=== PATIENT | male | born 1960 | race Caucasian/White ===

== ENCOUNTER 2018-01-28 18:21 | Inpatient (IN) | payer MEDICARE, MEDICAID ==
[~2018-01-28] VITALS: Ht 177.8 cm; Wt 107.8 kg
[~2018-01-28 18:21] MED LIST: ASPI81 PO; BECL8.7A6 IH; DOCU250C91 PO; DULO60CA44 PO; GABA-531 PO; HYPR15DR23 OU; LUBI24CA2 PO; OMEP20 PO; PANT40TA25 PO; QUET100T PO; SIMV-259 PO; TRAZ-147 PO; VITAD1000 PO
[2018-01-28] MEDS ORDERED: PENT400 PO (19:03)
[2018-01-28] MEDS ORDERED: DIAZ10 PO (19:03)
[2018-01-28] MEDS ORDERED: CYCL5.5D OU (19:03)
[2018-01-28] MEDS ORDERED: TEST5GEL TD (19:03)
[2018-01-28] MEDS ORDERED: FLUT16H NASAL (19:03)
[2018-01-28] MEDS ORDERED: TEMA15CA PO (19:03)
[2018-01-28 19:15] LABS: BASOPHILS % (AUTO) 0.8 % (0.0-2.0); EOSINOPHILS % (AUTO) 2.7 % (1.0-6.0); HEMATOCRIT 40.5 % (41-53); HEMOGLOBIN 13.6 g/dL (13.5-17.5); LYMPHOCYTES % (AUTO) 27.5 % (22.0-44.0); MEAN CORPUSCULAR HEMOGLOBIN 28.9 pg (26.0-34.0); MEAN CORPUSCULAR HGB CONC 33.6 G/dL (31.0-37.0); MEAN CORPUSCULAR VOLUME 86 fL (80-100); MONOCYTES # (AUTO) 0.8 K/uL (0.1-1.0); MONOCYTES % (AUTO) 10.7 % (2.0-9.0); NEUTROPHILS # (AUTO) 4.2 K/uL (1.8-7.7); NEUTROPHILS % (AUTO) 58.3 % (40.0-70.0); PLATELET COUNT (AUTO) 235 K/uL (150-450); RED CELL DISTRIBUTION WIDTH 14.9 % (11.5-14.5)
[2018-01-28 19:23] LABS: ANION GAP 4 mmol/L (8-16); CALCIUM, TOTAL 8.3 mg/dL (8.8-10.5); CARBON DIOXIDE 30 mmol/L (22-29); CHLORIDE 101 mmol/L (98-107); CREATININE 0.92 mg/dL (0.60-1.30); GLOMERULAR FILTR. RATE CALC > 60 mL/min (>60); GLUCOSE,RANDOM 75 mg/dL (70-110); POTASSIUM 4.2 mmol/L (3.5-5.1); SODIUM SERUM 135 mmol/L (136-145); UREA NITROGEN, BLOOD 11 mg/dL (7-18)
[2018-01-28 19:30] LABS: ALANINE AMINOTRANSFERASE 34 U/L (12-78); ALBUMIN 3.6 g/dL (3.4-5.0); ALKALINE PHOSPHATASE 100 U/L (46-116); ASPARTATE AMINOTRANSFERASE 19 U/L (15-37); BILIRUBIN,TOTAL 0.6 mg/dL (0.1-1.0); TOTAL PROTEIN, SERUM 7.3 g/dL (6.4-8.2)
[2018-01-28 19:45] LABS: AMPHET/METH SCREEN,URINE NEGATIVE (NEGATIVE); BARBITURATE SCREEN, URINE NEGATIVE (NEGATIVE); BENZODIAZEPINES SCREEN,URINE POSITIVE (NEGATIVE); CANNABINOID SCREEN,URINE NEGATIVE (NEGATIVE); COCAINE SCREEN,URINE NEGATIVE (NEGATIVE); METHADONE SCREEN, URINE NEGATIVE (NEGATIVE); OPIATE SCREEN,URINE NEGATIVE (NEGATIVE)
[2018-01-28 19:46] LABS: PHENCYCLIDINE SCREEN,URINE NEGATIVE (NEGATIVE)
[2018-01-28] MEDS ORDERED: HALOPERIDOL 5 MG TABLET PO PRN (20:00)
[2018-01-28] MEDS ORDERED: ZOLPIDEM TARTRATE 10 MG TABLET PO PRN (20:00)
[2018-01-28] MEDS ORDERED: SIMV-261 PO (20:04)
[2018-01-28] MEDS ORDERED: PERTUSS(ACELL),DIPH,TET VAC/PF 0.5 ML VIAL IM ONE (20:30)
[2018-01-28] MEDS ORDERED: SODIUM CHLORIDE 0.9% 250 ML IRRIG SOLUTION BOTTLE IRRIG ONE (20:30)
[2018-01-29 00:04] VITALS: BP 120/82
[2018-01-29 00:05] VITALS: BP 124/73
[2018-01-29] MEDS: LORazepam 2 MG TABLET PO PRN ×2 (00:06→12:22)
[2018-01-29 08:22] VITALS: BP 108/60
[2018-01-29] MEDS ORDERED: DICYCLOMINE HCL 10 MG CAPSULE PO PRN (12:45)
[2018-01-29] MEDS ORDERED: TESTOSTERONE 4 MG/24 HR TD SCH (12:45)
[2018-01-29] MEDS: PENTOXIFYLLINE 400 MG DR TABLET PO SCH ×2 (13:00→16:36)
[2018-01-29] MEDS: OXYBUTYNIN CHLORIDE 5 MG TABLET PO SCH ×2 (13:09→16:36)
[2018-01-29] MEDS: OMEGA-3/DHA/EPA/FISH OIL 1,000 MG CAPSULE PO SCH (13:09)
[2018-01-29] MEDS: DULoxetine HCL 60 MG CAPSULE PO SCH (13:09)
[2018-01-29] MEDS: GABAPENTIN 300 MG CAPSULE PO SCH ×2 (13:09→16:36)
[2018-01-29] MEDS: TAMSULOSIN HCL 0.4 MG CAPSULE PO SCH (13:09)
[2018-01-29] MEDS: MONTELUKAST SODIUM 10 MG TABLET PO SCH (15:42)
[2018-01-29] MEDS: CALCIPOTRIENE 0.005% 60 GM CREAM TP SCH (15:42)
[2018-01-29] MEDS: FLUTICASONE PROPIONATE 50 MCG/SPRAY 16 GM NASAL SPRAY NASAL SCH (15:42)
[2018-01-29] MEDS: CycloSPORINE 0.05% 0.4 ML OPHTHALMIC EMULSION OU SCH (15:43)
[2018-01-29 16:14] VITALS: BP 140/73
[2018-01-29] MEDS: LUBIPROSTONE 24 MCG CAPSULE PO SCH (16:35)
[2018-01-29] MEDS: FAMOTIDINE 20 MG TABLET PO SCH (16:35)
[2018-01-29] MEDS ORDERED: NIZATIDINE 150 MG PO SCH (17:00)
[2018-01-29] MEDS: TiZANidine HCL 4 MG TABLET PO SCH (21:49)
[2018-01-29] MEDS: QUEtiapine FUMARATE 200 MG TABLET PO SCH (21:49)
[2018-01-30 02:20] VITALS: BP 112/61
[2018-01-30] MEDS: FAMOTIDINE 20 MG TABLET PO SCH ×2 (08:44→16:24)
[2018-01-30] MEDS: LUBIPROSTONE 24 MCG CAPSULE PO SCH ×2 (08:44→16:25)
[2018-01-30] MEDS: OMEGA-3/DHA/EPA/FISH OIL 1,000 MG CAPSULE PO SCH (08:45)
[2018-01-30] MEDS: DULoxetine HCL 60 MG CAPSULE PO SCH (08:45)
[2018-01-30] MEDS: OXYBUTYNIN CHLORIDE 5 MG TABLET PO SCH ×3 (08:45→16:25)
[2018-01-30] MEDS: TAMSULOSIN HCL 0.4 MG CAPSULE PO SCH (08:45)
[2018-01-30] MEDS: PENTOXIFYLLINE 400 MG DR TABLET PO SCH ×3 (08:45→16:24)
[2018-01-30] MEDS: CycloSPORINE 0.05% 0.4 ML OPHTHALMIC EMULSION OU SCH ×2 (08:45→20:41)
[2018-01-30] MEDS: TiZANidine HCL 4 MG TABLET PO SCH ×2 (08:45→20:40)
[2018-01-30] MEDS: GABAPENTIN 300 MG CAPSULE PO SCH ×3 (08:45→16:24)
[2018-01-30] MEDS: FLUTICASONE PROPIONATE 50 MCG/SPRAY 16 GM NASAL SPRAY NASAL SCH (08:45)
[2018-01-30] MEDS: MONTELUKAST SODIUM 10 MG TABLET PO SCH (08:45)
[2018-01-30 08:46] VITALS: BP 111/68
[2018-01-30] MEDS: CALCIPOTRIENE 0.005% 60 GM CREAM TP SCH (08:47)
[2018-01-30] MEDS ORDERED: MAGNESIUM CITRATE 300 ML ORAL SOLUTION PO PRN (12:30)
[2018-01-30 16:13] VITALS: BP 121/77
[2018-01-30] MEDS: QUEtiapine FUMARATE 200 MG TABLET PO SCH (20:37)
[2018-01-31 00:44] VITALS: BP 112/68
[2018-01-31] MEDS ORDERED: MAGNESIUM CITRATE 300 ML ORAL SOLUTION PO ONE (08:15)
[2018-01-31 08:23] VITALS: BP 126/63
[2018-01-31] MEDS: DULoxetine HCL 60 MG CAPSULE PO SCH (09:07)
[2018-01-31] MEDS: GABAPENTIN 300 MG CAPSULE PO SCH ×3 (09:07→16:12)
[2018-01-31] MEDS: FAMOTIDINE 20 MG TABLET PO SCH ×2 (09:08→16:12)
[2018-01-31] MEDS: OMEGA-3/DHA/EPA/FISH OIL 1,000 MG CAPSULE PO SCH (09:08)
[2018-01-31] MEDS: LUBIPROSTONE 24 MCG CAPSULE PO SCH ×2 (09:08→16:12)
[2018-01-31] MEDS: TiZANidine HCL 4 MG TABLET PO SCH ×2 (09:08→21:02)
[2018-01-31] MEDS: TAMSULOSIN HCL 0.4 MG CAPSULE PO SCH (09:08)
[2018-01-31] MEDS: OXYBUTYNIN CHLORIDE 5 MG TABLET PO SCH ×3 (09:08→16:12)
[2018-01-31] MEDS: PENTOXIFYLLINE 400 MG DR TABLET PO SCH ×3 (09:08→16:12)
[2018-01-31] MEDS: MONTELUKAST SODIUM 10 MG TABLET PO SCH (09:08)
[2018-01-31] MEDS: FLUTICASONE PROPIONATE 50 MCG/SPRAY 16 GM NASAL SPRAY NASAL SCH (09:08)
[2018-01-31] MEDS: CycloSPORINE 0.05% 0.4 ML OPHTHALMIC EMULSION OU SCH ×2 (09:08→21:04)
[2018-01-31] MEDS: TESTOSTERONE 1% 50 MG-5 GM GEL PACKET TD SCH (09:15)
[2018-01-31] MEDS: CALCIPOTRIENE 0.005% 60 GM CREAM TP SCH (09:15)
[2018-01-31] MEDS: HYPROMELLOSE 0.5% 15 ML OPHTHALMIC SOLUTION OU PRN (12:09)
[2018-01-31 16:09] VITALS: BP 116/77
[2018-01-31] MEDS: LORazepam 2 MG TABLET PO PRN (16:22)
[2018-01-31] MEDS: QUEtiapine FUMARATE 200 MG TABLET PO SCH (21:02)
[2018-02-01 00:15] VITALS: BP 110/70
[2018-02-01 08:34] VITALS: BP 115/69
[2018-02-01] MEDS: LUBIPROSTONE 24 MCG CAPSULE PO SCH ×2 (08:37→16:14)
[2018-02-01] MEDS: OMEGA-3/DHA/EPA/FISH OIL 1,000 MG CAPSULE PO SCH (08:37)
[2018-02-01] MEDS: FAMOTIDINE 20 MG TABLET PO SCH ×2 (08:37→16:14)
[2018-02-01] MEDS: PENTOXIFYLLINE 400 MG DR TABLET PO SCH ×3 (08:38→16:14)
[2018-02-01] MEDS: CycloSPORINE 0.05% 0.4 ML OPHTHALMIC EMULSION OU SCH ×2 (08:38→21:00)
[2018-02-01] MEDS: TAMSULOSIN HCL 0.4 MG CAPSULE PO SCH (08:38)
[2018-02-01] MEDS: TiZANidine HCL 4 MG TABLET PO SCH ×2 (08:38→21:02)
[2018-02-01] MEDS: DULoxetine HCL 60 MG CAPSULE PO SCH (08:38)
[2018-02-01] MEDS: GABAPENTIN 300 MG CAPSULE PO SCH ×3 (08:38→16:15)
[2018-02-01] MEDS: OXYBUTYNIN CHLORIDE 5 MG TABLET PO SCH ×3 (08:38→16:14)
[2018-02-01] MEDS: MONTELUKAST SODIUM 10 MG TABLET PO SCH (08:38)
[2018-02-01] MEDS: TESTOSTERONE 1% 50 MG-5 GM GEL PACKET TD SCH (08:39)
[2018-02-01] MEDS: FLUTICASONE PROPIONATE 50 MCG/SPRAY 16 GM NASAL SPRAY NASAL SCH (08:41)
[2018-02-01] MEDS: CALCIPOTRIENE 0.005% 60 GM CREAM TP SCH (08:41)
[2018-02-01] MEDS: HYPROMELLOSE 0.5% 15 ML OPHTHALMIC SOLUTION OU PRN (13:23)
[2018-02-01] MEDS: LORazepam 2 MG TABLET PO PRN (13:23)
[2018-02-01 16:35] VITALS: BP 120/76
[2018-02-01] MEDS: QUEtiapine FUMARATE 200 MG TABLET PO SCH (21:02)
[2018-02-01] MEDS ORDERED: MAG HYDROX/AL HYDROX/SIMETH ES 30 ML SUSPENSION UDCUP PO PRN (21:30)
[2018-02-01] MEDS ORDERED: IBUPROFEN 600 MG TABLET PO PRN (21:30)
[2018-02-01] MEDS ORDERED: PETROLATUM,WHITE 71 GM JELLY TP PRN (21:30)
[2018-02-01] MEDS ORDERED: BENZOCAINE/MENTHOL LOZENGE MM PRN (21:30)
[2018-02-01] MEDS ORDERED: ACETAMINOPHEN 325 MG TABLET PO PRN (21:30)
[2018-02-01] MEDS ORDERED: CloNIDine HCL 0.1 MG TABLET PO PRN (21:30)
[2018-02-01] MEDS ORDERED: ALBUTEROL SULFATE HFA 90 MCG/PUFF 8 GM INHALER IH PRN (21:30)
[2018-02-01] MEDS ORDERED: BACITRACIN 28.4 GM OINTMENT TP PRN (21:30)
[2018-02-02 07:21] VITALS: BP 109/68
[2018-02-02 08:40] VITALS: BP 120/72
[2018-02-02] MEDS: OMEPRAZOLE 20 MG CAPSULE PO SCH (08:56)
[2018-02-02] MEDS: OXYBUTYNIN CHLORIDE 5 MG TABLET PO SCH ×3 (08:57→16:10)
[2018-02-02] MEDS: LUBIPROSTONE 24 MCG CAPSULE PO SCH ×2 (08:57→16:10)
[2018-02-02] MEDS: DULoxetine HCL 60 MG CAPSULE PO SCH (08:57)
[2018-02-02] MEDS: FAMOTIDINE 20 MG TABLET PO SCH ×2 (08:57→16:09)
[2018-02-02] MEDS: OMEGA-3/DHA/EPA/FISH OIL 1,000 MG CAPSULE PO SCH (08:57)
[2018-02-02] MEDS: TiZANidine HCL 4 MG TABLET PO SCH ×2 (08:57→21:45)
[2018-02-02] MEDS: TAMSULOSIN HCL 0.4 MG CAPSULE PO SCH (08:57)
[2018-02-02] MEDS: MONTELUKAST SODIUM 10 MG TABLET PO SCH (08:57)
[2018-02-02] MEDS: PENTOXIFYLLINE 400 MG DR TABLET PO SCH ×3 (08:57→16:10)
[2018-02-02] MEDS: CycloSPORINE 0.05% 0.4 ML OPHTHALMIC EMULSION OU SCH ×2 (08:57→21:45)
[2018-02-02] MEDS: GABAPENTIN 300 MG CAPSULE PO SCH ×3 (08:57→16:09)
[2018-02-02] MEDS: TESTOSTERONE 1% 50 MG-5 GM GEL PACKET TD SCH (08:58)
[2018-02-02] MEDS: FLUTICASONE PROPIONATE 50 MCG/SPRAY 16 GM NASAL SPRAY NASAL SCH (09:00)
[2018-02-02] MEDS: CALCIPOTRIENE 0.005% 60 GM CREAM TP SCH (09:00)
[2018-02-02] MEDS: LORazepam 2 MG TABLET PO PRN ×2 (11:02→16:11)
[2018-02-02] MEDS: HYPROMELLOSE 0.5% 15 ML OPHTHALMIC SOLUTION OU PRN (16:11)
[2018-02-02 16:26] VITALS: BP 113/70
[2018-02-02] MEDS: QUEtiapine FUMARATE 200 MG TABLET PO SCH (21:44)
[2018-02-03 06:31] VITALS: BP 128/78
[2018-02-03 08:00] VITALS: BP 130/87
[2018-02-03] MEDS: GABAPENTIN 300 MG CAPSULE PO SCH ×3 (08:26→16:38)
[2018-02-03] MEDS: TAMSULOSIN HCL 0.4 MG CAPSULE PO SCH (08:27)
[2018-02-03] MEDS: TiZANidine HCL 4 MG TABLET PO SCH ×2 (08:27→21:04)
[2018-02-03] MEDS: FAMOTIDINE 20 MG TABLET PO SCH ×2 (08:27→16:38)
[2018-02-03] MEDS: PENTOXIFYLLINE 400 MG DR TABLET PO SCH ×3 (08:27→16:38)
[2018-02-03] MEDS: OMEPRAZOLE 20 MG CAPSULE PO SCH (08:27)
[2018-02-03] MEDS: FLUTICASONE PROPIONATE 50 MCG/SPRAY 16 GM NASAL SPRAY NASAL SCH (08:27)
[2018-02-03] MEDS: OMEGA-3/DHA/EPA/FISH OIL 1,000 MG CAPSULE PO SCH (08:27)
[2018-02-03] MEDS: CycloSPORINE 0.05% 0.4 ML OPHTHALMIC EMULSION OU SCH ×2 (08:27→20:54)
[2018-02-03] MEDS: DULoxetine HCL 60 MG CAPSULE PO SCH (08:27)
[2018-02-03] MEDS: MONTELUKAST SODIUM 10 MG TABLET PO SCH (08:27)
[2018-02-03] MEDS: OXYBUTYNIN CHLORIDE 5 MG TABLET PO SCH ×3 (08:27→16:38)
[2018-02-03] MEDS: LUBIPROSTONE 24 MCG CAPSULE PO SCH ×2 (08:27→16:38)
[2018-02-03] MEDS: TESTOSTERONE 1% 50 MG-5 GM GEL PACKET TD SCH (08:28)
[2018-02-03] MEDS: CALCIPOTRIENE 0.005% 60 GM CREAM TP SCH (08:30)
[2018-02-03] MEDS: LORazepam 2 MG TABLET PO PRN ×2 (08:41→16:21)
[2018-02-03 16:28] VITALS: BP 110/73
[2018-02-03] MEDS: QUEtiapine FUMARATE 200 MG TABLET PO SCH (21:04)
[2018-02-04 00:05] VITALS: BP 104/61
[2018-02-04 08:28] VITALS: BP 137/88
[2018-02-04] MEDS: FAMOTIDINE 20 MG TABLET PO SCH ×2 (08:29→16:51)
[2018-02-04] MEDS: LUBIPROSTONE 24 MCG CAPSULE PO SCH ×2 (08:29→16:52)
[2018-02-04] MEDS: GABAPENTIN 300 MG CAPSULE PO SCH ×3 (08:29→16:52)
[2018-02-04] MEDS: PENTOXIFYLLINE 400 MG DR TABLET PO SCH ×3 (08:29→16:52)
[2018-02-04] MEDS: MONTELUKAST SODIUM 10 MG TABLET PO SCH (08:29)
[2018-02-04] MEDS: OMEPRAZOLE 20 MG CAPSULE PO SCH (08:29)
[2018-02-04] MEDS: DULoxetine HCL 60 MG CAPSULE PO SCH (08:30)
[2018-02-04] MEDS: TiZANidine HCL 4 MG TABLET PO SCH ×2 (08:30→21:00)
[2018-02-04] MEDS: TAMSULOSIN HCL 0.4 MG CAPSULE PO SCH (08:30)
[2018-02-04] MEDS: OXYBUTYNIN CHLORIDE 5 MG TABLET PO SCH ×3 (08:30→16:52)
[2018-02-04] MEDS: FLUTICASONE PROPIONATE 50 MCG/SPRAY 16 GM NASAL SPRAY NASAL SCH (08:30)
[2018-02-04] MEDS: CycloSPORINE 0.05% 0.4 ML OPHTHALMIC EMULSION OU SCH ×2 (08:30→21:01)
[2018-02-04] MEDS: OMEGA-3/DHA/EPA/FISH OIL 1,000 MG CAPSULE PO SCH (08:30)
[2018-02-04] MEDS: TESTOSTERONE 1% 50 MG-5 GM GEL PACKET TD SCH (08:31)
[2018-02-04] MEDS: CALCIPOTRIENE 0.005% 60 GM CREAM TP SCH (08:35)
[2018-02-04] MEDS: LORazepam 2 MG TABLET PO PRN ×2 (08:36→14:45)
[2018-02-04 16:11] VITALS: BP 132/76
[2018-02-04] MEDS: QUEtiapine FUMARATE 200 MG TABLET PO SCH (21:00)
[2018-02-05 01:19] VITALS: BP 108/70
[2018-02-05 08:14] VITALS: BP 110/65
[2018-02-05] MEDS: MONTELUKAST SODIUM 10 MG TABLET PO SCH (09:01)
[2018-02-05] MEDS: GABAPENTIN 300 MG CAPSULE PO SCH ×3 (09:01→16:34)
[2018-02-05] MEDS: OXYBUTYNIN CHLORIDE 5 MG TABLET PO SCH ×3 (09:01→16:34)
[2018-02-05] MEDS: DULoxetine HCL 60 MG CAPSULE PO SCH (09:01)
[2018-02-05] MEDS: FAMOTIDINE 20 MG TABLET PO SCH ×2 (09:01→16:33)
[2018-02-05] MEDS: TAMSULOSIN HCL 0.4 MG CAPSULE PO SCH (09:01)
[2018-02-05] MEDS: TiZANidine HCL 4 MG TABLET PO SCH ×2 (09:01→21:13)
[2018-02-05] MEDS: OMEPRAZOLE 20 MG CAPSULE PO SCH (09:01)
[2018-02-05] MEDS: TESTOSTERONE 1% 50 MG-5 GM GEL PACKET TD SCH (09:02)
[2018-02-05] MEDS: CycloSPORINE 0.05% 0.4 ML OPHTHALMIC EMULSION OU SCH ×2 (09:03→21:13)
[2018-02-05] MEDS: PENTOXIFYLLINE 400 MG DR TABLET PO SCH ×3 (09:03→16:34)
[2018-02-05] MEDS: POLYETHYLENE GLYCOL 3350 17 GM PACKET PO SCH (09:03)
[2018-02-05] MEDS: LUBIPROSTONE 24 MCG CAPSULE PO SCH ×2 (09:03→16:34)
[2018-02-05] MEDS: OMEGA-3/DHA/EPA/FISH OIL 1,000 MG CAPSULE PO SCH (09:03)
[2018-02-05] MEDS: CALCIPOTRIENE 0.005% 60 GM CREAM TP SCH (09:04)
[2018-02-05] MEDS: FLUTICASONE PROPIONATE 50 MCG/SPRAY 16 GM NASAL SPRAY NASAL SCH (09:05)
[2018-02-05] MEDS: LORazepam 2 MG TABLET PO PRN ×2 (10:33→17:50)
[2018-02-05] MEDS: HYPROMELLOSE 0.5% 15 ML OPHTHALMIC SOLUTION OU PRN (11:53)
[2018-02-05 16:19] VITALS: BP 126/69
[2018-02-05] MEDS: QUEtiapine FUMARATE 200 MG TABLET PO SCH (21:13)
[2018-02-06 00:05] VITALS: BP 108/64
[2018-02-06] MEDS ORDERED: OXYB5 PO (03:53)
[2018-02-06] MEDS ORDERED: TAMS0.4C32 PO (03:53)
[2018-02-06] MEDS ORDERED: CALC560C TP (03:53)
[2018-02-06] MEDS ORDERED: TIZA4TAB4 PO (03:53)
[2018-02-06] MEDS ORDERED: OMEG-135 PO (03:53)
[2018-02-06] MEDS ORDERED: FAMO20 PO (03:53)
[2018-02-06] MEDS ORDERED: MIRALAX PO (03:53)
[2018-02-06] MEDS ORDERED: MONT10TA21 PO (03:53)
[2018-02-06] MEDS ORDERED: LUBIPROSTONE 24 MCG CAPSULE PO SCH (07:00)
[2018-02-06] MEDS: CycloSPORINE 0.05% 0.4 ML OPHTHALMIC EMULSION OU SCH (08:21)
[2018-02-06] MEDS: OXYBUTYNIN CHLORIDE 5 MG TABLET PO SCH (08:21)
[2018-02-06] MEDS: DULoxetine HCL 60 MG CAPSULE PO SCH (08:21)
[2018-02-06] MEDS: TESTOSTERONE 1% 50 MG-5 GM GEL PACKET TD SCH (08:21)
[2018-02-06] MEDS: GABAPENTIN 300 MG CAPSULE PO SCH (08:21)
[2018-02-06] MEDS: TAMSULOSIN HCL 0.4 MG CAPSULE PO SCH (08:21)
[2018-02-06] MEDS: OMEPRAZOLE 20 MG CAPSULE PO SCH (08:21)
[2018-02-06] MEDS: OMEGA-3/DHA/EPA/FISH OIL 1,000 MG CAPSULE PO SCH (08:21)
[2018-02-06] MEDS: MONTELUKAST SODIUM 10 MG TABLET PO SCH (08:22)
[2018-02-06] MEDS: TiZANidine HCL 4 MG TABLET PO SCH (08:22)
[2018-02-06] MEDS: FAMOTIDINE 20 MG TABLET PO SCH (08:22)
[2018-02-06] MEDS: POLYETHYLENE GLYCOL 3350 17 GM PACKET PO SCH (08:22)
[2018-02-06] MEDS: PENTOXIFYLLINE 400 MG DR TABLET PO SCH (08:22)
[2018-02-06] MEDS: FLUTICASONE PROPIONATE 50 MCG/SPRAY 16 GM NASAL SPRAY NASAL SCH (08:23)
[2018-02-06 08:36] VITALS: BP 119/83
[2018-02-06] MEDS: CALCIPOTRIENE 0.005% 60 GM CREAM TP SCH (08:38)
== END 2018-02-06 09:50 | disposition home or self-care (01) | DRG 885 ==
LOC: EMS 18:22 → B2X 20:52
DX: F33.2 Major depressive disorder, recurrent severe without psychotic features (principal); E29.1 Testicular hypofunction; E55.9 Vitamin D deficiency, unspecified; E78.5 Hyperlipidemia, unspecified; F41.9 Anxiety disorder, unspecified; G47.00 Insomnia, unspecified; G89.29 Other chronic pain; H04.123 Dry eye syndrome of bilateral lacrimal glands; I10 Essential (primary) hypertension; J44.9 Chronic obstructive pulmonary disease, unspecified; K59.00 Constipation, unspecified; K21.9 Gastro-esophageal reflux disease without esophagitis; M79.7 Fibromyalgia; N40.0 Benign prostatic hyperplasia without lower urinary tract symptoms; F31.9 Bipolar disorder, unspecified; Z59.0 Homelessness; Z79.899 Other long term (current) drug therapy; Z91.5 Personal history of self-harm; Z98.1 Arthrodesis status; X78.8XXA Intentional self-harm by other sharp object, initial encounter; Y93.89 Activity, other specified; Y92.89 Other specified places as the place of occurrence of the external cause; Y99.8 Other external cause status; S61.511A Laceration without foreign body of right wrist, initial encounter; S51.811A Laceration without foreign body of right forearm, initial encounter; E66.9 Obesity, unspecified; Z68.34 Body mass index [BMI] 34.0-34.9, adult
CPT/HCPCS: 90715; G0480